=== PATIENT | male | born 1980 | race American Indian/Alaskan Native ===

== ENCOUNTER 2017-10-05 12:28 | Emergency (ER) | payer OTHER ==
[2017-10-05 12:34] VITALS: BP 138/91
--- NOTE | 2017-10-05 13:34 | Emergency Department Report ---
ED Male HPI - General Chief complaint: Urogenital-Male Stated complaint: TESTICLE ENLARGED Time Seen by Provider: 10/05/17 13:22 Source: patient Mode of arrival: Ambulatory Limitations: No Limitations - History of Present Illness MD Complaint: testicle pain, testicle swelling -: days(s) (6 days) Location: left testicle Radiation: none Severity: moderate Severity scale (0 -10): 5 Quality: dull - Related Data Allergies Allergy/AdvReac Type Severity Reaction Status Date / Time No Known Allergies Allergy Unverified 10/05/17 12:34 ED Review of Systems ROS: Stated complaint: TESTICLE ENLARGED Other details as noted in HPI Comment: All other systems reviewed and negative Constitutional: denies: chills, fever Cardiovascular: denies: chest pain Gastrointestinal: denies: abdominal pain, nausea, vomiting Genitourinary: testicular pain, testicular mass. denies: urgency, dysuria, frequency, hematuria, discharge Musculoskeletal: denies: back pain Neurological: denies: headache, weakness, numbness, paresthesias ED Past Medical Hx - Past Medical History Previous Medical History?: No - Surgical History Past Surgical History?: No - Social History Smoking Status: Current Every Day Smoker Substance Use Type: None ED Physical Exam - General Limitations: No Limitations General appearance: alert, in no apparent distress - Head Head exam: Present: atraumatic, normocephalic, normal inspection - Eye Eye exam: Present: normal appearance, PERRL - ENT ENT exam: Present: normal exam, mucous membranes moist - Neck Neck exam: Present: normal inspection, full ROM. Absent: tenderness, meningismus, lymphadenopathy, thyromegaly - Respiratory Respiratory exam: Present: normal lung sounds bilaterally - Cardiovascular Cardiovascular Exam: Present: regular rate, normal rhythm, normal heart sounds - GI/Abdominal GI/Abdominal exam: Present: soft, normal bowel sounds. Absent: distended, tenderness, guarding, rebound, rigid, organomegaly, mass, bruit, pulsatile mass , hernia - exam: Present: testicular tenderness, scrotal swelling. Absent: urethral discharge - Extremities Exam Extremities exam: Present: normal inspection, full ROM, normal capillary refill. Absent: tenderness - Back Exam Back exam: Present: normal inspection, full ROM. Absent: muscle spasm, paraspinal tenderness, vertebral tenderness - Neurological Exam Neurological exam: Present: alert, oriented X3, CN II-XII intact, normal gait, reflexes normal - Skin Skin exam: Present: warm, intact, normal color ED Course Vital Signs 10/05/17 12:30 Temperature 98.8 F Pulse Rate 70 Respiratory 16 Rate Blood Pressure 138/91 O2 Sat by Pulse 100 Oximetry ED Medical Decision Making - Radiology Data Radiology results: report reviewed Referring Physician: SILVANO JUSTICE Patient Name: MYNOR GILLETTE Date of : 1980 Sex: Male Report Date: 2017-10-05 Report Status: Finalized Findings [facility] [address] [place] [address] Ultrasound Report Signed Patient: MYNOR GILLETTE III MR#: [id number] : 1980 Acct:[id number] Age/Sex: 37 / M ADM Date: 10/05/17 Loc: ED Attending Dr: Ordering Physician: SILVANO JUSTICE Date of Service: 10/05/17 Procedure(s): US testicular doppler comp Accession Number(s): [id number] cc: SILVANO JUSTICE FINAL REPORT PROCEDURE: US TESTICULAR DOPPLER COMP TECHNIQUE: Real-time maldonado-scale and color flow Doppler sonography in multiple planes of the scrotum, testicles, and epididymes was performed. Velocity spectral waveform analysis Doppler imaging of the arterial inflow and venous outflow of the testicles was performed with image documentation. CPT 43413 and 00560 HISTORY: left testicular swelling COMPARISON: No prior studies are available for comparison. FINDINGS: The echogenicity of the right and left testicles appears normal. No masses are identified. Moderate-size left hydroceles present. With color flow imaging there is diffuse increased flow in the left testicle also in the left epididymis. Left epididymis appears enlarged. The appearance suggest epididymitis and orchitis on the left side. Echogenicity of the right testicle appears normal. No mass is visualized. Right epididymis is unremarkable. The right testicle measures 5.2 x 2.5 x 3.4 centimeter. The left testicle measures 4.9 x 2.7 x 3.3 centimeter. Arterial venous flow visualized in the left testicle. Arterial venous flow also visualized in the right testicle with pulse Doppler imaging. IMPRESSION: There is marked increased flow in the left testicle and left epididymis. The left epididymis is mildly enlarged although shows no mass. The appearance is consistent with epididymitis and orchitis. The epididymis and testicles otherwise are unremarkable. Moderate-sized left hydrocele is present. Transcribed By: MOISE Dictated By: BLAYNE SOTO MD Electronically Authenticated By: BLAYNE SOTO MD Signed Date/Time: 10/05/171517 DD/ 17 TD/TT: 10/05/171517 Critical care attestation.: If time is entered above; I have spent that time in minutes in the direct care of this critically ill patient, excluding procedure time. ED Disposition Clinical Impression: Testicular pain, left, Epididymitis Disposition: TO HOME OR SELFCARE Is pt being admited?: No Condition: Stable Instructions: Epididymitis (ED) Referrals: PRIMARY CAREMD [Primary Care Provider] - 3-5 Days Forms: STI Treatment and Prevention
--- NOTE | 2017-10-05 15:24 | Ultrasound Report ---
FINAL REPORT PROCEDURE: US TESTICULAR DOPPLER COMP TECHNIQUE: Real-time maldonado-scale and color flow Doppler sonography in multiple planes of the scrotum, testicles, and epididymes was performed. Velocity spectral waveform analysis Doppler imaging of the arterial inflow and venous outflow of the testicles was performed with image documentation. CPT 98341 and 54912 HISTORY: left testicular swelling COMPARISON: No prior studies are available for comparison. FINDINGS: The echogenicity of the right and left testicles appears normal. No masses are identified. Moderate-size left hydroceles present. With color flow imaging there is diffuse increased flow in the left testicle also in the left epididymis. Left epididymis appears enlarged. The appearance suggest epididymitis and orchitis on the left side. Echogenicity of the right testicle appears normal. No mass is visualized. Right epididymis is unremarkable. The right testicle measures 5.2 x 2.5 x 3.4 centimeter. The left testicle measures 4.9 x 2.7 x 3.3 centimeter. Arterial venous flow visualized in the left testicle. Arterial venous flow also visualized in the right testicle with pulse Doppler imaging. IMPRESSION: There is marked increased flow in the left testicle and left epididymis. The left epididymis is mildly enlarged although shows no mass. The appearance is consistent with epididymitis and orchitis. The epididymis and testicles otherwise are unremarkable. Moderate-sized left hydrocele is present.
[2017-10-05 17:45] LABS: Bilirubin,Urine NEG (Negative); Blood,Urine SM (Negative); Color,Urine Yellow (Yellow); Mucus,Urine FEW /HPF; Protein,Urine <15 mg/dL mg/dL (Negative); Urobilinogen,Urine < 2.0 mg/dL (<2.0); WBC,Urine < 1.0 /HPF (0.0-6.0)
[2017-10-05] MEDS ORDERED: ZITHROMAX PO ONE (17:47)
[2017-10-05] MEDS ORDERED: ROCEPHIN IM ONE (17:47)
[2017-10-05] MEDS ORDERED: XYLOCAINE 1% MPF 5 mL INFILTRATI ONE (17:47)
== END 2017-10-05 18:19 | disposition home or self-care (01) ==
LOC: ED 12:28
DX: N45.1 Epididymitis (principal); F17.200 Nicotine dependence, unspecified, uncomplicated
CPT/HCPCS: 81001; 93975; 96372; 99284; J0696

== ENCOUNTER 2017-10-05 12:31 | Emergency (ER) | payer OTHER | END 2017-10-05 14:00 | disposition other institution (70) | LOC: ED 12:31 | DX: R21 Rash and other nonspecific skin eruption (principal); Z53.21 Procedure and treatment not carried out due to patient leaving prior to being seen by health care provider ==